=== PATIENT | female | born 1930 | race Hispanic/Latino ===

== ENCOUNTER 2019-12-29 10:09 | Emergency (ER) | payer MEDICARE ==
--- NOTE | 2019-12-29 10:13 | Emergency Department Report ---
ED Neuro Deficit HPI - General Chief Complaint: Weakness Stated Complaint: CVA Time Seen by Provider: 12/29/19 10:12 Source: patient, EMS (Verbal report received from emergency medical services. EMS documentation not available at time of chart dictation ), RN notes reviewed Mode of arrival: Stretcher Limitations: Altered Mental Status, Physical Limitation - History of Present Illness Initial Comments: The patient was evaluated in the emergency department for symptoms described in the history of present illness. He/she was evaluated in the context of the global COVID-19 pandemic, which necessitated consideration that the patient might be at risk for infection with the virus that causes COVID-19. Institutional protocols and algorithms that pertain to the evaluation of patients at risk for COVID-19 are in a state of rapid change based on infor mation released by regulatory bodies including the CDC and federal and state organizations. These policies and algorithms were followed during the patient's care in the emergency department. Please note that these policies, procedures and recommendations changed on a rapid basis. The patient is an 89-year-old female. She is brought to the hospital by emergency medical services as a possible code stroke. Patient herself is a phasic/dysarthric. She is not accompanied by friends or family at this time for additional information or collateral information. Emergency medical services indicates that they believe her last known well time is approximately 9:40 AM Stroke symptoms include confusion, facial droop, and speech disturbance. EMS indicates normal Accu-Chek in the field. Review of patient's medications indicates that she takes Eliquis. It is not known why she takes this medication, nor is not known when she last took this dose. Patient is not accompanied by friends or family at this time for additional information or collateral information. Patient is confused, thus, not able to describe the qualitative nature of her symptoms, exacerbating, relieving, or radiation factors. -: minutes(s) Location: speech, right face, dysarthria Presenting Symptoms: Present: Facial Droop/Numbness, Unable to Speak Clearly, Altered Mental Status On Anticoagulants: Yes - Related Data Home Medications: Home Medications Medication Instructions Recorded Confirmed Last Taken Apixaban [Eliquis] 5 mg PO BID 12/29/19 12/29/19 Unknown AtorvaSTATin [Lipitor] 40 mg PO QHS 12/29/19 12/29/19 Unknown Levothyroxine [Synthroid] 0.05 mcg PO QAM 12/29/19 12/29/19 Unknown dilTIAZem CD [Cardizem Cd] 120 mg PO DAILY 12/29/19 12/29/19 Unknown lisinopriL [Zestril TAB] 10 mg PO QDAY 12/29/19 12/29/19 Unknown Allergies/Adverse Reactions: Allergies Allergy/AdvReac Type Severity Reaction Status Date / Time Unable to Assess Allergy Unverified 12/29/19 10:10 ED Review of Systems ROS: Stated complaint: CVA Other details as noted in HPI Comment: Unobtainable due to pts medical conditions ED Past Medical Hx - Medications Home Medications: Home Medications Medication Instructions Recorded Confirmed Last Taken Type Apixaban [Eliquis] 5 mg PO BID 12/29/19 12/29/19 Unknown History AtorvaSTATin [Lipitor] 40 mg PO QHS 12/29/19 12/29/19 Unknown History Levothyroxine [Synthroid] 0.05 mcg PO QAM 12/29/19 12/29/19 Unknown History dilTIAZem CD [Cardizem Cd] 120 mg PO DAILY 12/29/19 12/29/19 Unknown History lisinopriL [Zestril TAB] 10 mg PO QDAY 12/29/19 12/29/19 Unknown History ED Neuro Physical Exam - General Limitations: Altered Mental Status, Physical Limitation General appearance: anxious, in distress Suspected Stroke: Yes - Head Head exam: Present: atraumatic, normocephalic - Eye Eye exam: Present: normal appearance, EOMI. Absent: nystagmus - ENT ENT exam: Present: normal exam, normal orophraynx, mucous membranes moist, normal external ear exam - Neck Neck exam: Present: normal inspection, full ROM. Absent: tenderness, meningismus - Respiratory Respiratory exam: Present: normal lung sounds bilaterally. Absent: respiratory distress - Cardiovascular Cardiovascular Exam: Present: regular rate, normal rhythm, normal heart sounds. Absent: bradycardia, tachycardia, irregular rhythm, systolic murmur, diastolic murmur, rubs, gallop - GI/Abdominal GI/Abdominal exam: Present: soft. Absent: distended, tenderness, guarding, rebound, rigid, pulsatile mass - Extremities Exam Extremities exam: Present: normal inspection, full ROM, other (2+ pulses noted in the bilateral upper and lower extremities. There is no palpable cord. negative Homans sign. Muscular compartments are soft. The pelvis is stable.). Absent: pedal edema, calf tenderness - Back Exam Back exam: Present: normal inspection, full ROM. Absent: tenderness, CVA tenderness (R), CVA tenderness (L), paraspinal tenderness, vertebral tenderness - Neurological Exam Neurological exam: Present: alert, other (There is a right-sided facial droop. The tongue is midline. Extraocular movements are intact bilaterally. The patient has slurred speech and is dysarthric). Absent: motor sensory deficit (5 out of 5 strength in 4 extremities.) - NIHSS Assessment Interval: Baseline 1a. Level of Consciousness: alert/keenly responsive 1b. LOC Questions: answers 1 question correctly 1c. LOC Commands: performs tasks correctly 2. Best Gaze: normal 3. Visual: no visual loss 4. Facial Palsy: minor paralysis 5b. Motor Arm Right: no drift 5a. Motor Arm Left: no drift 6a. Motor Leg Left: no drift 6b. Motor Leg Right: no drift 7. Limb Ataxia: absent 8. Sensory: normal 9. Best Language: mild/moderate aphasia 10. Dysarthria: mild/moderate dysarthria 11. Extinction/Inattention: visual/tactile inattention Total Score: 5 Stroke Severity: Moderate Stroke - Psychiatric Psychiatric exam: Present: normal affect, normal mood - Skin Skin exam: Present: warm, dry, intact, normal color. Absent: rash ED Course Vital Signs 12/29/19 12/29/19 12/29/19 10:54 11:06 14:10 Temperature 97.6 F Pulse Rate 78 94 H Respiratory 12 18 Rate Blood Pressure 138/42 160/59 [Left] O2 Sat by Pulse 98 99 Oximetry - Reevaluation(s) Reevaluation #1: 12/29/19 12:41 Differential diagnosis, including but not limited to: Stroke, TIA, pneumonia, urinary tract infection Assessment and plan: 89-year-old female presenting initially with speech disturbance, and facial droop, expressive aphasia, currently on Eliquis, we do not know her exact last time of ingestion of this medication. She is not accompanied by friends or family at this time for additional information or collateral information. Given that she arrives with a full prescription bottle of systemic anticoagulation, and we cannot establish an exact last known time of ingestion, she is not a TPA candidate. In addition, while in the emergency room, her dysarthria improved, although did not completely resolve. She is not accompanied by friends or family at this time for additional information or collateral information. She had a CT angiogram head and neck which demonstrated a large M1 occlusion, on the left-hand side. Currently, [facility], and [facility], which are the local interventional neurology centers, are in complete diversion and saturation. We have reached out to [facility] to discuss this patient's care. We are still waiting for urinalysis at this time. Patient was seen in consultation with stroke neurologist, Dr. Jian Benitez, who agreed with this plan of care Reevaluation #2: 12/29/19 13:21 Dr Camacho at [facility] to accept as a transfer for large vessel vessel occlusion - Lab Data Result diagrams: 12/29/19 10:26 12/29/19 10:26 Lab Results 12/29/19 12/29/19 12/29/19 Range/Units 10:26 10:26 10:26 WBC 7.5 (4.5-11.0) K/mm3 RBC 3.67 (3.65-5.03) M/mm3 Hgb 11.5 (10.1-14.3) gm/dl Hct 33.4 (30.3-42.9) % MCV 91 (79-97) fl MCH 31 (28-32) pg MCHC 34 (30-34) % RDW 13.6 (13.2-15.2) % Plt Count 206 (140-440) K/mm3 Lymph % (Auto) 29.2 (13.4-35.0) % Sabine % (Auto) 5.7 (0.0-7.3) % Eos % (Auto) 1.0 (0.0-4.3) % Baso % (Auto) 0.8 (0.0-1.8) % Lymph # 2.2 (1.2-5.4) K/mm3 Sabine # 0.4 (0.0-0.8) K/mm3 Eos # 0.1 (0.0-0.4) K/mm3 Baso # 0.1 (0.0-0.1) K/mm3 Seg Neutrophils % 63.3 (40.0-70.0) % Seg Neutrophils # 4.7 (1.8-7.7) K/mm3 PT 15.2 H (12.2-14.9) Sec. INR 1.17 H (0.87-1.13) APTT 26.7 (24.2-36.6) Sec. Sodium 141 (137-145) mmol/L Potassium 4.9 (3.6-5.0) mmol/L Chloride 104.7 (98-107) mmol/L Carbon Dioxide 26 (22-30) mmol/L Anion Gap 15 mmol/L BUN 13 (7-17) mg/dL Creatinine 0.9 (0.6-1.2) mg/dL Estimated GFR 59 ml/min BUN/Creatinine Ratio 14 % Glucose 117 H (65-100) mg/dL Calcium 9.4 (8.4-10.2) mg/dL Magnesium (1.7-2.3) mg/dL Total Creatine Kinase (30-135) units/L Troponin T < 0.010 (0.00-0.029) ng/mL Urine Color (Yellow) Urine Turbidity (Clear) Urine pH (5.0-7.0) Ur Specific Ridge[place] (1.003-1.030) Urine Protein (Negative) mg/dL Urine Glucose (UA) (Negative) mg/dL Urine Ketones (Negative) mg/dL Urine Blood (Negative) Urine Nitrite (Negative) Urine Bilirubin (Negative) Urine Urobilinogen (<2.0) mg/dL Ur Leukocyte Esterase (Negative) Urine WBC (Auto) (0.0-6.0) /HPF Urine RBC (Auto) (0.0-6.0) /HPF U Epithel Cells (Auto) (0-13.0) /HPF Urine Bacteria (Auto) (Negative) /HPF Urine Mucus /HPF Salicylates (2.8-20.0) mg/dL Acetaminophen (10.0-30.0) ug/mL Plasma/Serum Alcohol (0-0.07) % 12/29/19 12/29/19 12/29/19 Range/Units 10:26 10:26 10:26 WBC (4.5-11.0) K/mm3 RBC (3.65-5.03) M/mm3 Hgb (10.1-14.3) gm/dl Hct (30.3-42.9) % MCV (79-97) fl MCH (28-32) pg MCHC (30-34) % RDW (13.2-15.2) % Plt Count (140-440) K/mm3 Lymph % (Auto) (13.4-35.0) % Sabine % (Auto) (0.0-7.3) % Eos % (Auto) (0.0-4.3) % Baso % (Auto) (0.0-1.8) % Lymph # (1.2-5.4) K/mm3 Sabine # (0.0-0.8) K/mm3 Eos # (0.0-0.4) K/mm3 Baso # (0.0-0.1) K/mm3 Seg Neutrophils % (40.0-70.0) % Seg Neutrophils # (1.8-7.7) K/mm3 PT (12.2-14.9) Sec. INR (0.87-1.13) APTT (24.2-36.6) Sec. Sodium (137-145) mmol/L Potassium (3.6-5.0) mmol/L Chloride (98-107) mmol/L Carbon Dioxide (22-30) mmol/L Anion Gap mmol/L BUN (7-17) mg/dL Creatinine (0.6-1.2) mg/dL Estimated GFR ml/min BUN/Creatinine Ratio % Glucose (65-100) mg/dL Calcium (8.4-10.2) mg/dL Magnesium 1.80 (1.7-2.3) mg/dL Total Creatine Kinase 95 (30-135) units/L Troponin T (0.00-0.029) ng/mL Urine Color (Yellow) Urine Turbidity (Clear) Urine pH (5.0-7.0) Ur Specific Ridgeway (1.003-1.030) Urine Protein (Negative) mg/dL Urine Glucose (UA) (Negative) mg/dL Urine Ketones (Negative) mg/dL Urine Blood (Negative) Urine Nitrite (Negative) Urine Bilirubin (Negative) Urine Urobilinogen (<2.0) mg/dL Ur Leukocyte Esterase (Negative) Urine WBC (Auto) (0.0-6.0) /HPF Urine RBC (Auto) (0.0-6.0) /HPF U Epithel Cells (Auto) (0-13.0) /HPF Urine Bacteria (Auto) (Negative) /HPF Urine Mucus /HPF Salicylates < 0.3 L (2.8-20.0) mg/dL Acetaminophen 5.0 L (10.0-30.0) ug/mL Plasma/Serum Alcohol (0-0.07) % 12/29/19 12/29/19 Range/Units 10:26 Unknown WBC (4.5-11.0) K/mm3 RBC (3.65-5.03) M/mm3 Hgb (10.1-14.3) gm/dl Hct (30.3-42.9) % MCV (79-97) fl MCH (28-32) pg MCHC (30-34) % RDW (13.2-15.2) % Plt Count (140-440) K/mm3 Lymph % (Auto) (13.4-35.0) % Sabine % (Auto) (0.0-7.3) % Eos % (Auto) (0.0-4.3) % Baso % (Auto) (0.0-1.8) % Lymph # (1.2-5.4) K/mm3 Sabine # (0.0-0.8) K/mm3 Eos # (0.0-0.4) K/mm3 Baso # (0.0-0.1) K/mm3 Seg Neutrophils % (40.0-70.0) % Seg Neutrophils # (1.8-7.7) K/mm3 PT (12.2-14.9) Sec. INR (0.87-1.13) APTT (24.2-36.6) Sec. Sodium (137-145) mmol/L Potassium (3.6-5.0) mmol/L Chloride (98-107) mmol/L Carbon Dioxide (22-30) mmol/L Anion Gap mmol/L BUN (7-17) mg/dL Creatinine (0.6-1.2) mg/dL Estimated GFR ml/min BUN/Creatinine Ratio % Glucose (65-100) mg/dL Calcium (8.4-10.2) mg/dL Magnesium (1.7-2.3) mg/dL Total Creatine Kinase (30-135) units/L Troponin T (0.00-0.029) ng/mL Urine Color Yellow (Yellow) Urine Turbidity Cloudy (Clear) Urine pH 6.0 (5.0-7.0) Ur Specific Ridge[place] 1.021 (1.003-1.030) Urine Protein <15 mg/dl (Negative) mg/dL Urine Glucose (UA) Neg (Negative) mg/dL Urine Ketones Neg (Negative) mg/dL Urine Blood Sm (Negative) Urine Nitrite Neg (Negative) Urine Bilirubin Neg (Negative) Urine Urobilinogen < 2.0 (<2.0) mg/dL Ur Leukocyte Esterase Lg (Negative) Urine WBC (Auto) 82.0 H (0.0-6.0) /HPF Urine RBC (Auto) 22.0 (0.0-6.0) /HPF U Epithel Cells (Auto) 2.0 (0-13.0) /HPF Urine Bacteria (Auto) 1+ (Negative) /HPF Urine Mucus Few /HPF Salicylates (2.8-20.0) mg/dL Acetaminophen (10.0-30.0) ug/mL Plasma/Serum Alcohol < 0.01 (0-0.07) % Lab Results 12/29/19 12/29/19 12/29/19 Range/Units 10:26 10:26 10:26 WBC 7.5 (4.5-11.0) K/mm3 RBC 3.67 (3.65-5.03) M/mm3 Hgb 11.5 (10.1-14.3) gm/dl Hct 33.4 (30.3-42.9) % MCV 91 (79-97) fl MCH 31 (28-32) pg MCHC 34 (30-34) % RDW 13.6 (13.2-15.2) % Plt Count 206 (140-440) K/mm3 Lymph % (Auto) 29.2 (13.4-35.0) % Sabine % (Auto) 5.7 (0.0-7.3) % Eos % (Auto) 1.0 (0.0-4.3) % Baso % (Auto) 0.8 (0.0-1.8) % Lymph # 2.2 (1.2-5.4) K/mm3 Sabine # 0.4 (0.0-0.8) K/mm3 Eos # 0.1 (0.0-0.4) K/mm3 Baso # 0.1 (0.0-0.1) K/mm3 Seg Neutrophils % 63.3 (40.0-70.0) % Seg Neutrophils # 4.7 (1.8-7.7) K/mm3 PT 15.2 H (12.2-14.9) Sec. INR 1.17 H (0.87-1.13) APTT 26.7 (24.2-36.6) Sec. Sodium 141 (137-145) mmol/L Potassium 4.9 (3.6-5.0) mmol/L Chloride 104.7 (98-107) mmol/L Carbon Dioxide 26 (22-30) mmol/L Anion Gap 15 mmol/L BUN 13 (7-17) mg/dL Creatinine 0.9 (0.6-1.2) mg/dL Estimated GFR 59 ml/min BUN/Creatinine Ratio 14 % Glucose 117 H (65-100) mg/dL Calcium 9.4 (8.4-10.2) mg/dL Magnesium (1.7-2.3) mg/dL Total Creatine Kinase (30-135) units/L Troponin T < 0.010 (0.00-0.029) ng/mL 12/29/19 Range/Units 10:26 WBC (4.5-11.0) K/mm3 RBC (3.65-5.03) M/mm3 Hgb (10.1-14.3) gm/dl Hct (30.3-42.9) % MCV (79-97) fl MCH (28-32) pg MCHC (30-34) % RDW (13.2-15.2) % Plt Count (140-440) K/mm3 Lymph % (Auto) (13.4-35.0) % Sabine % (Auto) (0.0-7.3) % Eos % (Auto) (0.0-4.3) % Baso % (Auto) (0.0-1.8) % Lymph # (1.2-5.4) K/mm3 Sabine # (0.0-0.8) K/mm3 Eos # (0.0-0.4) K/mm3 Baso # (0.0-0.1) K/mm3 Seg Neutrophils % (40.0-70.0) % Seg Neutrophils # (1.8-7.7) K/mm3 PT (12.2-14.9) Sec. INR (0.87-1.13) APTT (24.2-36.6) Sec. Sodium (137-145) mmol/L Potassium (3.6-5.0) mmol/L Chloride (98-107) mmol/L Carbon Dioxide (22-30) mmol/L Anion Gap mmol/L BUN (7-17) mg/dL Creatinine (0.6-1.2) mg/dL Estimated GFR ml/min BUN/Creatinine Ratio % Glucose (65-100) mg/dL Calcium (8.4-10.2) mg/dL Magnesium 1.80 (1.7-2.3) mg/dL Total Creatine Kinase 95 (30-135) units/L Troponin T (0.00-0.029) ng/mL Vital Signs 12/29/19 12/29/19 10:54 11:06 Temperature 97.6 F Pulse Rate 78 Respiratory 12 Rate Blood Pressure 138/42 [Left] O2 Sat by Pulse 98 Oximetry - EKG Data -: EKG Interpreted by Id EKG shows normal: sinus rhythm Rate: normal When compared to previous EKG there are: previous EKG unavailable 12/29/19 12:40 There is no prior EKG available for comparison. Sinus rhythm, 84 bpm, left axis deviation, left anterior fascicular block, QTC prolonged, left ventricular hypertrophy, the EKG is abnormal, the EKG is not a STEMI next - Radiology Data Radiology results: report reviewed, image reviewed Print Report Referring Physician: DAVID KATZ Patient Name: LUIZA TAY Date of : 1930 Sex: Female Report Date: 2019-12-29 Report Status: Finalized Findings [facility] [address] [place] [address] XRay Report Signed Patient: LUIZA TAY MR#: [id number] : 1930 Acct:[id number] Age/Sex: 89 / F ADM Date: 12/29/19 Loc: ED Attending Dr: Ordering Physician: DAVID KATZ MD Date of Service: 12/29/19 Procedure(s): XR chest 1V ap Accession Number(s): [id number] cc: DAVID KATZ MD Fluoro Time In Minutes: CHEST 1 VIEW INDICATION: cva weakness confusion. COMPARISON: None FINDINGS: Support devices: None. Heart: Within normal limits. Lungs/Pleura: No acute air space or interstitial disease. Additional findings: Previous internal fixation of the left humeral neck is noted. IMPRESSION: No acute findings. Signer Name: Efraín Phelan Jr, MD Signed: 12/29/2019 11:07 AM Workstation Name: [id number] Transcribed By: TTR Dictated By: EFRAÍN PHELAN JR, MD Electronically Authenticated By: EFRAÍN PHELAN JR, MD Signed Date/Time: 12/29/19 110 DD/ 06 TD/TT: Print Report Referring Physician: DAVID KATZ Patient Name: LUIZA TAY Date of : 1930 Sex: Female Report Date: 2019-12-29 Report Status: [place] [address] Cat Scan Report Signed Patient: LUIZA TAY MR#: [id number] : 1930 Acct:[id number] Age/Sex: 89 / F ADM Date: 12/29/19 Loc: ED Attending Dr: Ordering Physician: DAVID KATZ MD Date of Service: 12/29/19 Procedure(s): CT head/brain wo con Accession Number(s): [id number] cc: DAVID KATZ MD CT HEAD WITHOUT CONTRAST INDICATION / CLINICAL INFORMATION: Code stroke. Dysarthria, facial droop. Note: Examination was performed at 0910 hours Central standard time but did not arrive on PACS as ready to read on PACS until 0927 Central standard time. The reason for this delay is unknown to me. TECHNIQUE: All CT scans at this location are performed using CT dose reduction for ALARA by means of automated exposure control. COMPARISON: None available. FINDINGS: HEMORRHAGE: No evidence of intracranial hemorrhage or extra-axial fluid collection. EXTRA-AXIAL SPACES: Focal dilatation of cortical sulci is observed along the lateral convexity of the left parietal lobe secondary to remote infarction in this region. Elsewhere, the cortical Sulci and sylvian fissures are enlarged reflecting a degree of parenchymal volume loss which is within normal limits for the patient's age of 89 years. Basilar cisterns have an unremarkable appearance. VENTRICULAR SYSTEM: The third and lateral ventricles are within normal limits in size and configuration. The patient's age of 89 years. CEREBRAL PARENCHYMA: Large area of encephalomalacia is observed in the left parietal and occipital lobe secondary to remote infarction. Several remote small deep infarctions are demonstrated in the bilateral ganglia capsular distribution. Mild microvascular ischemic changes are present in both cerebral hemispheres. MIDLINE SHIFT OR HERNIATION: There is no mass effect. CEREBELLUM / BRAINSTEM: Brainstem has an unremarkable appearance. Age related cerebellar atrophy is noted. MIDLINE STRUCTURES:Pituitary gland has an unremarkable appearance. No abnormalities are seen in the pineal region. INTRACRANIAL VESSELS:Calcified atherosclerotic plaque is present along the course of the c avernous segments of both internal carotid arteries. Similar findings are seen at the distal vertebral arteries. ORBITS: visualized portions of the orbits have an unremarkable appearance. SOFT TISSUES of HEAD: No significant abnormality. CALVARIUM: Evaluation of bone windows reveals no abnormalities. PARANASAL SINUSES / MASTOID AIR CELLS: Paranasal sinuses are free from inflammatory mucosal disease. Mastoid air cells are normally pneumatized. IMPRESSION: 1. Remote left parietal-occipital cortical infarction. 2. Remote bilateral small deep infarctions in a ganglia capsular distribution. 3. Age-related involutional changes. 4. No acute intracranial abnormality. CODE STROKE: Time of Communication (GO CART MECHANIC/CDT): 0945 hours Central standard time Licensed Practitioner Receiving Report: Dr. Katz of the [facility] emergency department Signer Name: Manjit Stokes MD Signed: 12/29/2019 10:53 AM Workstation Name: [id number] Transcribed By: Dictated By: Manjit Stokes MD Electronically Authenticated By: Manjit Stokes MD Signed Date/Time: 12/29/19 1053 Print Report Referring Physician: STEFAN BENITEZ Patient Name: LUIZA TAY Date of : 1930 Sex: Female Report Date: 2019-12-29 Report Status: Finalized Findings [facility] [address] [place] [address] Cat Scan Report Signed Patient: LUIZA TAY MR#: [id number] : 1930 Acct:[id number] Age/Sex: 89 / F ADM Date: 12/29/19 Loc: ED Attending Dr: Ordering Physician: STEFAN BENITEZ MD Date of Service: 12/29/19 Procedure(s): CT angio head Accession Number(s): [id number] cc: STEFAN BENITEZ MD CTA head with intravenous contrast CLINICAL HISTORY: Cerebrovascular accident. TECHNIQUE: 0.625 mm thick contiguous axial scans were obtained from the skull base to the skull vertex during rapid bolus administration of intravenous contrast material. Multiplanar reconstructions were produced in the coronal and sagittal planes. In addition 3 plane MIP instructions were produced and reviewed for this report. The axial source images and reconstructed images were reviewed for this report. CONTRAST DOSE REPORT: Omnipaque 350: 100 ml administered intravenously. All CT scans at this location are performed using CT dose reduction for ALARA by means of automated exposure control. FINDINGS: Internal carotid arteries: Ossified atherosclerotic plaque is present along the course of the cavernous, ophthalmic and clinoid and supraclinoid segments of the internal carotid arteries bilaterally. There is a moderate stenosis in the proximal supraclinoid region on the left. I do not identify hemodynamically significant stenosis on the right. Middle cerebral arteries: There is complete occlusion of the proximal M1 segment of the left middle cerebral artery. Retrograde contrast enhancement is seen in the mid and distal M1 segment of the caliber of the vessel is markedly reduced. There is decreased size of the insular and opercular branches of the left middle cerebral artery compared to those on the left. Right MCA circulation has an unremarkable appearance. Anterior cerebral arteries: Asymmetrical A1 segments a re demonstrated, right larger than left. Asymmetry in this region is common. An intact anterior communicating artery is present. No abnorm alities are seen along the course of the A2 segments of the anterior cerebral arteries or their pericallosal branches. Vertebral arteries: Bilaterally symmetrical vertebral arteries both contribute to the basilar artery origin. Basilar artery: Basilar artery has a normal appearance. Posterior cerebral arteries: Bilaterally symmetrical posterior cerebral arteries are observed. Dural sinuses: Dural venous sinuses are well demonstrated on this exam. There is no evidence of dural sinus thrombosis. IMPRESSION: 1. Complete occlusion of the proximal M1 segment of the left middle cerebral artery is noted. This is of uncertain chronicity. 2. No additional abno rmalities are identified on CTA head. Signer Name: Manjit Stokes MD Signed: 12/29/2019 12:03 PM Workstation Name: [id number] Transcribed By: Dictated By: Manjit Stokes MD Electronically Authenticated By: Manjit Stokes MD Signed Date/Time: 12/29/19 1203 DD/ 1152 TD/TT: Print Report Referring Physician: STEFAN BENITEZ Patient Name: LUIZA TAY Date of : 1930 Sex: Female Report Date: 2019-12-29 Report Status: [place] [address] Cat Scan Report Signed Patient: LUIZA TAY MR#: [id number] : 1930 Acct:[id number] Age/Sex: 89 / F ADM Date: 12/29/19 Loc: ED Attending Dr: Ordering Physician: STEFAN BENITEZ MD Date of Service: 12/29/19 Procedure(s): CT angio neck Accession Number(s): [id number] cc: STEFAN BENITEZ MD CTA neck without and with intravenous contrast material CLINICAL HISTORY: MAIN TECHNIQUE: Following acquisition of a timing bolus 0.625 mm thick contiguous axial scans were obtained from aortic arch to the skull base during rapid bolus intravenous contrast infusion. In addition to evaluation of axial source images multiplanar reconstructions were produced and reviewed for this report. 3 plane MIP reconstructions were produced and reviewed. Contrast dose report: Omnipaque 350: 100 ml, administered intravenously All CT examinations performed at this facility utilize modulated dose reduction, iterative reconstruction or weight- based dosing, as appropriate, to obtain a radiation dose which is as low as can reasonably be achieved. FINDINGS: Thoracic aorta: Calcified atherosclerotic plaque is seen along the visualized course of the thoracic aorta and at the origins of the great vessels. No additional abnormalities are identified along the course of the thoracic aorta.. Evaluation of the subclavian artery is remarkable for a 50% stenosis due to calcified atherosclerotic plaque. This is present just proximal to the origin of the left vertebral artery. Brachiocephalic and right subclavian artery have an unremarkable appearance. Evaluation of the right subclavian artery at the thoracic outlet is limited due to dense contrast in the adjacent right subclavian vein. Right carotid artery: Calcified atherosclerotic plaque is observed at the right carotid bifurcation. There is no associated stenosis. Tortuosity of the R ICA is noted. The R ICA has an otherwise unremarkable appearance. Left carotid artery: Calcified atherosclerotic plaque is present at the left carotid bifurcation and extends up into the proximal LICA. There is no associated stenosis. Marked tortuosity of the LICA is observed. Posterior circulation: Balanced vertebral arteries are demonstrated. Calcified atherosclerotic plaque is present at the origin of the right vertebral artery where a less than 50% stenosis is identified. The A2 segments of the vertebral arteries have a normal appearance. Both vertebral arteries contribute to the basilar artery origin. Basilar artery has an unremarkable appearance. The degree of stenosis, if any, is determined utilizing NASCET like criteria. In this case there is no indication of hemodynamically significant stenosis at the carotid bifurcations or elsewhere. Evaluation of the nonvascular soft tissue structures reveal no abnormality. There is no indication of cervical lymphadenopathy. No abnormalities are seen along the course of the airway. Visualized portions of the parotid glands and the submandibular salivary glands have a normal appearance. Thyroid gland has a normal appearance. Evaluation of the lung apices reveals no evidence of lung nodule or infiltrate. Evaluation of the cervical spine revealed no significant abnormalities. IMPRESSION: 1. No indication of hemodynamically significant stenosis at the carotid bifurcations or elsewhere. Signer Name: Manjit Stokes MD Signed: 12/29/2019 12:08 PM Workstation Name: [id number] Transcribed By: Dictated By: Jona Stokes MD Electronically Authenticated By: Manjit Stokes MD Signed Date/Time: 12/29/19 5770 - Core Measures Measure Exclusions: not indicated - Thrombolytic Inclusion/Exclusion Thrombolytic Contraindications: Rapidily Improving s/s, Patient on Anticoagulants Critical Care Time: Yes Critical care time in (mins) excluding proc time.: 35 Critical care attestation.: If time is entered above; I have spent that time in minutes in the direct care of this critically ill patient, excluding procedure time. ED Disposition Clinical Impression: Stroke, Anticoagulated Dis[id number] IP Is pt being admited?: No Does the pt Need Aspirin: No Condition: Serious Referrals: PRIMARY CARE, [Primary Care Provider] - 3-5 Days
[2019-12-29] MEDS ORDERED: LACTATED RINGERS 500 ML IV ONE (10:50)
[2019-12-29 10:57] LABS: Basophils # (Auto) 0.1 K/mm3 (0.0-0.1); Basophils % (Auto) 0.8 % (0.0-1.8); Eosinophils # (Auto) 0.1 K/mm3 (0.0-0.4); Hematocrit 33.4 % (30.3-42.9); Hemoglobin 11.5 gm/dl (10.1-14.3); Lymphocytes # (Auto) 2.2 K/mm3 (1.2-5.4); Lymphocytes % (Auto) 29.2 % (13.4-35.0); Mean Corpuscular HGB Conc 34 % (30-34); Mean Corpuscular Volume 91 fl (79-97); Monocytes # (Auto) 0.4 K/mm3 (0.0-0.8); Monocytes % (Auto) 5.7 % (0.0-7.3); Platelet Count 206 K/mm3 (140-440); Red Blood Count 3.67 M/mm3 (3.65-5.03); Red Cell Distribution Width 13.6 % (13.2-15.2)
--- NOTE | 2019-12-29 10:57 | Cat Scan Report ---
CT HEAD WITHOUT CONTRAST INDICATION / CLINICAL INFORMATION: Code stroke. Dysarthria, facial droop. Note: Examination was performed at 0910 hours Central standard time but did not arrive on PACS as lois dy to read on PACS until 0927 Central standard time. The reason for this delay is unknown to me. TECHNIQUE: All CT scans at this location are performed using CT dose reduction for ALARA by means of automated e xposure control. COMPARISON: None available. FINDINGS: HEMORRHAGE: No evidence of intracranial hemorrhage or extra-axial fluid collection. EXTRA-AXIAL SPACES: Focal dilatation of cortical sulci is observed along the lateral convexity of the left parietal lobe secondary to remote infarction in this region. Elsewhere, the cortical Sulci and sylvian fissures are enlarged reflecting a degree of parenchymal volume loss which is within normal l imits for the patient's age of 89 years. Basilar cisterns have an unremarkable appearance. VENTRICULAR SYSTEM: The third and lateral ventricles are within normal limits in size and configurati on. The patient's age of 89 years. CEREBRAL PARENCHYMA: Large area of encephalomalacia is observed in the left parietal and occipital lobe secondary to remote infarction. Several remote small deep infar ctions are demonstrated in the bilateral ganglia capsular distribution. Mild microvascular ischemic c hanges are present in both cerebral hemispheres. MIDLINE SHIFT OR HERNIATION: There is no mass effect. CEREBELLUM / BRAINSTEM: Brainstem has an unremarkable appearance. Age related cerebellar atrophy is n oted. MIDLINE STRUCTURES:Pituitary gland has an unremarkable appearance. No abnormalities are seen in the p ineal region. INTRACRANIAL VESSELS:Calcified atherosclerotic plaque is present along the course of the cavernous se gments of both internal carotid arteries. Similar findings are seen at the distal vertebral arteries. ORBITS: visualized portions of the orbits have an unremarkable appearance. SOFT TISSUES of HEAD: No significant abnormality. CALVARIUM: Evaluation of bone windows reveals no abnormalities. PARANASAL SINUSES / MASTOID AIR CELLS: Paranasal sinuses are free from inflammatory mucosal disease. Mastoid air cells are normally pneumatized. IMPRESSION: 1. Remote left parietal-occipital cortical infarction. 2. Remote bilateral small deep infarctions in a ganglia capsular distribution. 3. Age-related involutional changes. 4. No acute intracranial abnormality. CODE STROKE: Time of Communication (IRISH MOSS OPERATOR/CDT): 0945 hours Central standard time Licensed Practitioner Receiving Report: Dr. Katz of the [facility] emergenc y department Signer Name: Manjit Stokes MD Signed: 12/29/2019 10:53 AM Workstation Name: [id number]
[2019-12-29 11:06] LABS: INR 1.17 (0.87-1.13)
[2019-12-29 11:07] LABS: Partial Thromboplastin Time 26.7 Sec. (24.2-36.6)
--- NOTE | 2019-12-29 11:11 | XRay Report ---
CHEST 1 VIEW INDICATION: cva weakness confusion. COMPARISON: None FINDINGS: Support devices: None. Heart: Within normal limits. Lungs/Pleura: No acute air space or interstitial disease. Additional findings: Previous internal fixation of the left humeral neck is noted. IMPRESSION: No acute findings. Signer Name: Efraín Phelan Jr, MD Signed: 12/29/2019 11:07 AM Workstation Name: [id number]
[2019-12-29 11:22] LABS: BUN/Creatinine Ratio 14; Blood Urea Nitrogen 13 mg/dL (7-17); Calcium 9.4 mg/dL (8.4-10.2); Hemolysis Index 6
--- NOTE | 2019-12-29 12:07 | Cat Scan Report ---
CTA head with intravenous contrast CLINICAL HISTORY: Cerebrovascular accident. TECHNIQUE: 0.625 mm thick contiguous axial scans were obtained from the skull base to the skull vertex during r apid bolus administration of intravenous contrast material. Multiplanar reconstructions were produced in the coronal and sagittal planes. In addition 3 plane MIP instructions were produced and reviewed for this report. The axial source images and reconstructed images were reviewed for this report. CONTRAST DOSE REPORT: Omnipaque 350: 100 ml administered intravenously. All CT scans at this location are performed using CT dose reduction for ALARA by means of automated e xposure control. FINDINGS: Internal carotid arteries: Ossified atherosclerotic plaque is present along the course of the caverno us, ophthalmic and clinoid and supraclinoid segments of the internal carotid arteries bilaterally. Th ere is a moderate stenosis in the proximal supraclinoid region on the left. I do not identify hemodyn amically significant stenosis on the right. Middle cerebral arteries: There is complete occlusion of the proximal M1 segment of the left middle c erebral artery. Retrograde contrast enhancement is seen in the mid and distal M1 segment of the calib er of the vessel is markedly reduced. There is decreased size of the insular and opercular branches o f the left middle cerebral artery compared to those on the left. Right MCA circulation has an unremar kable appearance. Anterior cerebral arteries: Asymmetrical A1 segments are demonstrated, right larger than left. Asymme try in this region is common. An intact anterior communicating artery is present. No abnormalities ar e seen along the course of the A2 segments of the anterior cerebral arteries or their pericallosal br anches. Vertebral arteries: Bilaterally symmetrical vertebral arteries both contribute to the basilar artery origin. Basilar artery: Basilar artery has a normal appearance. Posterior cerebral arteries: Bilaterally symmetrical posterior cerebral arteries are observed. Dural sinuses: Dural venous sinuses are well demonstrated on this exam. There is no evidence of dural sinus thrombosis. IMPRESSION: 1. Complete occlusion of the proximal M1 segment of the left middle cerebral artery is noted. This is of uncertain chronicity. 2. No additional abnormalities are identified on CTA head. Signer Name: Manjit Stokes MD Signed: 12/29/2019 12:03 PM Workstation Name: [id number]
--- NOTE | 2019-12-29 12:13 | Cat Scan Report ---
CTA neck without and with intravenous contrast material CLINICAL HISTORY: MAIN TECHNIQUE: Following acquisition of a timing bolus 0.625 mm thick contiguous axial scans were obtained from aort ic arch to the skull base during rapid bolus intravenous contrast infusion. In addition to evaluation of axial source images multiplanar reconstructions were produced and reviewed for this report. 3 davy ne MIP reconstructions were produced and reviewed. Contrast dose report: Omnipaque 350: 100 ml, administered intravenously All CT examinations performed at this facility utilize modulated dose reduction, iterative reconstruc tion or weight-based dosing, as appropriate, to obtain a radiation dose which is as low as can reason ably be achieved. FINDINGS: Thoracic aorta: Calcified atherosclerotic plaque is seen along the visualized course of the thoracic aorta and at the origins of the great vessels. No additional abnormalities are identified along the c ourse of the thoracic aorta.. Evaluation of the subclavian artery is remarkable for a 50% stenosis du e to calcified atherosclerotic plaque. This is present just proximal to the origin of the left verteb ral artery. Brachiocephalic and right subclavian artery have an unremarkable appearance. Evaluation o f the right subclavian artery at the thoracic outlet is limited due to dense contrast in the adjacent right subclavian vein. Right carotid artery: Calcified atherosclerotic plaque is observed at the right carotid bifurcation. There is no associated stenosis. Tortuosity of the R ICA is noted. The R ICA has an otherwise unremar kable appearance. Left carotid artery: Calcified atherosclerotic plaque is present at the left carotid bifurcation and extends up into the proximal LICA. There is no associated stenosis. Marked tortuosity of the LICA is observed. Posterior circulation: Balanced vertebral arteries are demonstrated. Calcified atherosclerotic plaque is present at the origin of the right vertebral artery where a less than 50% stenosis is identified. The A2 segments of the vertebral arteries have a normal appearance. Both vertebral arteries contribu te to the basilar artery origin. Basilar artery has an unremarkable appearance. The degree of stenosis, if any, is determined utilizing NASCET like criteria. In this case there is no indication of hemodynamically significant stenosis at the carotid bifurcations or elsewhere. Evaluation of the nonvascular soft tissue structures reveal no abnormality. There is no indication of cervical lymphadenopathy. No abnormalities are seen along the course of the airway. Visualized porti ons of the parotid glands and the submandibular salivary glands have a normal appearance. Thyroid gla nd has a normal appearance. Evaluation of the lung apices reveals no evidence of lung nodule or infil trate. Evaluation of the cervical spine revealed no significant abnormalities. IMPRESSION: 1. No indication of hemodynamically significant stenosis at the carotid bifurcations or elsewhere. Signer Name: Manjit Stokes MD Signed: 12/29/2019 12:08 PM Workstation Name: [id number]
[2019-12-29] MEDS ORDERED: ASPIRIN 81 MG TAB CHEW PO ONE (13:24)
--- NOTE | 2019-12-29 13:27 | Emergency Department Report ---
ED Neuro Deficit HPI - General Chief Complaint: Weakness Stated Complaint: CVA Time Seen by Provider: 12/29/19 10:12 Source: patient, EMS (Verbal report received from emergency medical services. EMS documentation not available at time of chart dictation ), RN notes reviewed Mode of arrival: Stretcher Limitations: Altered Mental Status, Physical Limitation - History of Present Illness Initial Comments: [facility] Tele[facility]urology [facility] Date of Service: 12/29/2019 10:03:43 Impression: Left Hemispheric Infarct left M1 occlusion Comments/Sign-Out: Left M1 complete occlusive disease, no alteplase delvered for NOaC. NIHSS is 8. Mechanism of Stroke: Possible Thromboembolic Possible Cardioembolic Metrics: Last Known Well: 12/29/2019 09:23:00 [facility] Notification Time: 12/29/2019 10:03:11 Arrival Time: 12/29/2019 10:03:43 Stamp Time: 12/29/2019 10:03:43 Time First Login Attempt: 12/29/2019 10:06:44 Video Start Time: 12/29/2019 10:06:44 Symptoms: logan Adam, NIHSS Start Assessment Time: 12/29/2019 10:23:18 Patient is not a candidate for Alteplase/Activase. Patient was not deemed candidate for Alteplase/Activase thrombolytics because of Use of NOAs within 48 hours. Video End Time: 12/29/2019 10:43:00 CT head showed no acute hemorrhage or acute core infarct. Clinical Presentation is Suggestive of Large Vessel Occlusive Disease, Recommendations are as Follows CT Perfusion. Advanced Imaging is Suggestive of Large Vessel Occlusion, Neurointerventional Specialist to be Consulted. Discussed with Neurointerventionalist on 12/29/2019 11:10:00 ED Physician notified of diagnostic impression and management plan on 12/29/2019 10:44:18 Our recommendations are outlined below. Recommendations: Activate Stroke Protocol Admission/Order Set Stroke/Telemetry Floor Neuro Checks Bedside Swallow Eval DVT Prophylaxis IV Fluids, Normal Saline Head of Bed 30 Degrees Euglycemia and Avoid Hyperthermia (PRN Acetaminophen) Hold Antithrombotics for Now transfer stat for intervention Sign Out: Discussed with Emergency Department Provider History of Present Illness: Patient is a 89 year old Male. Patient was brought by EMS for symptoms of Dr. John, speaks, Patient was last known normal over the past hour. She was taking eliquis, with right sided facial droop and aphasia. She has a right sided facial droop. NIHSS is 3-4, with confusion. She last took elquis the night before, per nursing at bedside reading her med list. Past Medical History: Hypertension Atrial Fibrillation Antiplatelet use: No Examination: 1A: Level of Consciousness - Alert; keenly responsive + 0 1B: Ask Month and Age - Aphasic + 2 1C: Blink Eyes & Squeeze Hands - Performs 0 Tasks + 2 2: Test Horizontal Extraocular Movements - Normal + 0 3: Test Visual Shepard - No Visual Loss + 0 4: Test Facial Palsy (Use Grimace if Obtunded) - Normal symmetry + 0 5A: Test Left Arm Motor Drift - No Drift for 10 Seconds + 0 5B: Test Right Arm Motor Drift - Drift, but doesn't hit bed + 1 6A: Test Left Leg Motor Drift - No Drift for 5 Seconds + 0 6B: Test Right Leg Motor Drift - No Drift for 5 Seconds + 0 7: Test Limb Ataxia (FNF/Heel-Aguilera) - No Ataxia + 0 8: Test Sensation - Mild-Moderate Loss: Less Sharp/More Dull + 1 9: Test Language/Aphasia - Severe Aphasia: Fragmentary Expression, Inference Needed, Cannot Identify Materials + 2 10: Test Dysarthria - Normal + 0 11: Test Extinction/Inattention - No abnormality + 0 NIHSS Score: 8 Patient/Family was informed the Neurology Consult would happen via TeleHealth consult by way of interactive audio and video telecommunications and consented to receiving care in this manner. Due to the immediate potential for life-threatening deterioration due to underlying acute neurologic illness, I spent 35 minutes providing critical care. This time includes time for face to face visit via telemedicine, review of medical records, imaging studies and discussion of findings with providers, the patient and/or family. Dr Herbert [facility] Case [id number] -: Sudden (See Neuro Note) Location: speech, right face, dysarthria On Anticoagulants: Yes - Related Data Home Medications: Home Medications Medication Instructions Recorded Confirmed Last Taken Apixaban [Eliquis] 5 mg PO BID 12/29/19 12/29/19 Unknown AtorvaSTATin [Lipitor] 40 mg PO QHS 12/29/19 12/29/19 Unknown Levothyroxine [Synthroid] 0.05 mcg PO QAM 12/29/19 12/29/19 Unknown dilTIAZem CD [Cardizem Cd] 120 mg PO DAILY 12/29/19 12/29/19 Unknown lisinopriL [Zestril TAB] 10 mg PO QDAY 12/29/19 12/29/19 Unknown Allergies/Adverse Reactions: Allergies Allergy/AdvReac Type Severity Reaction Status Date / Time Unable to Assess Allergy Unverified 12/29/19 10:10 ED Review of Systems ROS: Stated complaint: CVA Other details as noted in HPI ED Past Medical Hx - Past Medical History Hx Hypertension: Yes Additional medical history: HLD - Surgical History Past Surgical History?: No - Social History Smoking Status: Unknown if ever smoked - Medications Home Medications: Home Medications Medication Instructions Recorded Confirmed Last Taken Type Apixaban [Eliquis] 5 mg PO BID 12/29/19 12/29/19 Unknown History AtorvaSTATin [Lipitor] 40 mg PO QHS 12/29/19 12/29/19 Unknown History Levothyroxine [Synthroid] 0.05 mcg PO QAM 12/29/19 12/29/19 Unknown History dilTIAZem CD [Cardizem Cd] 120 mg PO DAILY 12/29/19 12/29/19 Unknown History lisinopriL [Zestril TAB] 10 mg PO QDAY 12/29/19 12/29/19 Unknown History ED Neuro Physical Exam - General Limitations: Altered Mental Status, Physical Limitation General appearance: anxious, in distress ED Course Vital Signs 12/29/19 12/29/19 10:54 11:06 Temperature 97.6 F Pulse Rate 78 Respiratory 12 Rate Blood Pressure 138/42 [Left] O2 Sat by Pulse 98 Oximetry - Lab Data Result diagrams: 12/29/19 10:26 12/29/19 10:26 Lab Results 09/09/20 09/09/20 09/09/20 Range/Units 10:26 10:26 10:26 WBC 7.5 (4.5-11.0) K/mm3 RBC 3.67 (3.65-5.03) M/mm3 Hgb 11.5 (10.1-14.3) gm/dl Hct 33.4 (30.3-42.9) % MCV 91 (79-97) fl MCH 31 (28-32) pg MCHC 34 (30-34) % RDW 13.6 (13.2-15.2) % Plt Count 206 (140-440) K/mm3 Lymph % (Auto) 29.2 (13.4-35.0) % [place] % (Auto) 5.7 (0.0-7.3) % Eos % (Auto) 1.0 (0.0-4.3) % Baso % (Auto) 0.8 (0.0-1.8) % Lymph # 2.2 (1.2-5.4) K/mm3 [place] # 0.4 (0.0-0.8) K/mm3 Eos # 0.1 (0.0-0.4) K/mm3 Baso # 0.1 (0.0-0.1) K/mm3 Seg Neutrophils % 63.3 (40.0-70.0) % Seg Neutrophils # 4.7 (1.8-7.7) K/mm3 PT 15.2 H (12.2-14.9) Sec. INR 1.17 H (0.87-1.13) APTT 26.7 (24.2-36.6) Sec. Sodium 141 (137-145) mmol/L Potassium 4.9 (3.6-5.0) mmol/L Chloride 104.7 (98-107) mmol/L Carbon Dioxide 26 (22-30) mmol/L Anion Gap 15 mmol/L BUN 13 (7-17) mg/dL Creatinine 0.9 (0.6-1.2) mg/dL Estimated GFR 59 ml/min BUN/Creatinine Ratio 14 % Glucose 117 H (65-100) mg/dL Calcium 9.4 (8.4-10.2) mg/dL Magnesium (1.7-2.3) mg/dL Total Creatine Kinase (30-135) units/L Troponin T < 0.010 (0.00-0.029) ng/mL Salicylates (2.8-20.0) mg/dL Acetaminophen (10.0-30.0) ug/mL Plasma/Serum Alcohol (0-0.07) % 12/29/19 12/29/19 12/29/19 Range/Units 10:26 10:26 10:26 WBC (4.5-11.0) K/mm3 RBC (3.65-5.03) M/mm3 Hgb (10.1-14.3) gm/dl Hct (30.3-42.9) % MCV (79-97) fl MCH (28-32) pg MCHC (30-34) % RDW (13.2-15.2) % Plt Count (140-440) K/mm3 Lymph % (Auto) (13.4-35.0) % [place] % (Auto) (0.0-7.3) % Eos % (Auto) (0.0-4.3) % Baso % (Auto) (0.0-1.8) % Lymph # (1.2-5.4) K/mm3 [place] # (0.0-0.8) K/mm3 Eos # (0.0-0.4) K/mm3 Baso # (0.0-0.1) K/mm3 Seg Neutrophils % (40.0-70.0) % Seg Neutrophils # (1.8-7.7) K/mm3 PT (12.2-14.9) Sec. INR (0.87-1.13) APTT (24.2-36.6) Sec. Sodium (137-145) mmol/L Potassium (3.6-5.0) mmol/L Chloride (98-107) mmol/L Carbon Dioxide (22-30) mmol/L Anion Gap mmol/L BUN (7-17) mg/dL Creatinine (0.6-1.2) mg/dL Estimated GFR ml/min BUN/Creatinine Ratio % Glucose (65-100) mg/dL Calcium (8.4-10.2) mg/dL Magnesium 1.80 (1.7-2.3) mg/dL Total Creatine Kinase 95 (30-135) units/L Troponin T (0.00-0.029) ng/mL Salicylates < 0.3 L (2.8-20.0) mg/dL Acetaminophen 5.0 L (10.0-30.0) ug/mL Plasma/Serum Alcohol (0-0.07) % 12/29/19 Range/Units 10:26 WBC (4.5-11.0) K/mm3 RBC (3.65-5.03) M/mm3 Hgb (10.1-14.3) gm/dl Hct (30.3-42.9) % MCV (79-97) fl MCH (28-32) pg MCHC (30-34) % RDW (13.2-15.2) % Plt Count (140-440) K/mm3 Lymph % (Auto) (13.4-35.0) % [place] % (Auto) (0.0-7.3) % Eos % (Auto) (0.0-4.3) % Baso % (Auto) (0.0-1.8) % Lymph # (1.2-5.4) K/mm3 [place] # (0.0-0.8) K/mm3 Eos # (0.0-0.4) K/mm3 Baso # (0.0-0.1) K/mm3 Seg Neutrophils % (40.0-70.0) % Seg Neutrophils # (1.8-7.7) K/mm3 PT (12.2-14.9) Sec. INR (0.87-1.13) APTT (24.2-36.6) Sec. Sodium (137-145) mmol/L Potassium (3.6-5.0) mmol/L Chloride (98-107) mmol/L Carbon Dioxide (22-30) mmol/L Anion Gap mmol/L BUN (7-17) mg/dL Creatinine (0.6-1.2) mg/dL Estimated GFR ml/min BUN/Creatinine Ratio % Glucose (65-100) mg/dL Calcium (8.4-10.2) mg/dL Magnesium (1.7-2.3) mg/dL Total Creatine Kinase (30-135) units/L Troponin T (0.00-0.029) ng/mL Salicylates (2.8-20.0) mg/dL Acetaminophen (10.0-30.0) ug/mL Plasma/Serum Alcohol < 0.01 (0-0.07) % Critical care attestation.: If time is entered above; I have spent that time in minutes in the direct care of this critically ill patient, excluding procedure time. ED Disposition Condition: Stable Referrals: PRIMARY CARE, [Primary Care Provider] - 3-5 Days
[2019-12-29 13:58] LABS: Bacteria,Urine 1+ /HPF (Negative); Bilirubin,Urine NEG (Negative); Blood,Urine SM (Negative); Color,Urine Yellow (Yellow); Mucus,Urine FEW /HPF; Protein,Urine <15 mg/dL mg/dL (Negative); Urobilinogen,Urine < 2.0 mg/dL (<2.0)
[2019-12-29 14:10] VITALS: BP 160/59
== END 2019-12-29 14:28 | disposition short-term general hospital (02) ==
LOC: ED 10:09
DX: I63.9 Cerebral infarction, unspecified (principal); Z79.01 Long term (current) use of anticoagulants; Z79.899 Other long term (current) drug therapy
CPT/HCPCS: 36415; 70450; 70496; 70498; 71045; 80048; 81001; 82550; 82962; 83735; 84484; 85025; 85610; 85730; 93005; 99291; Q9967; 80320; G0480